=== PATIENT | male | born 1950 | race Caucasian/White ===

== ENCOUNTER 2016-09-12 17:45 | Emergency (ER) | payer MEDICARE ==
[2016-09-12 21:51] LABS: BUN/CREATININE RATIO 13 (0-10)
== END 2016-09-12 22:10 | disposition home or self-care (01) ==
LOC: ER1 17:45
PROVIDERS: Physician Assistant
DX: M76.62 Achilles tendinitis, left leg (principal); I48.91 Unspecified atrial fibrillation; Z88.8 Allergy status to other drugs, medicaments and biological substances; Z79.899 Other long term (current) drug therapy
CPT/HCPCS: 29505; 36415; 80048; 96372; 96374; 99283; J1885; J2270

== ENCOUNTER → 2016-09-13 | Outpatient (CLI) | payer MEDICARE | LOC: US 12:41 | DX: M79.662 Pain in left lower leg (principal) | CPT/HCPCS: 93971 ==